=== PATIENT | male | born 1965 | race African-American/Black ===

== ENCOUNTER 2023-12-05 10:44 | Emergency (ER) | payer OTHER ==
[2023-12-05] MEDS ORDERED: Morphine 2 MG/ML VIAL ONE (11:22)
[2023-12-05] MEDS ORDERED: Morphine 4 MG/ML VIAL ONE (11:22)
[2023-12-05 12:26] LABS: #Eosinphils 0.1 thou/uL (0.0-0.7); #Monocytes 0.6 thou/uL (0.11-0.59); #Neutrophils 5.2 thou/uL (1.40-6.50); %Basophils 0.3 % (0.0-1.0); %Eosinophils 0.8 % (0.0-10.0); %Lymphocytes 9.7 % (21.0-51.0); %Monocytes 9.7 % (0.0-10.0); %Neutrophils 79.2 % (42.0-75.0); Hematocrit 33.9 % (42.0-52.0); Hemoglobin 11.2 g/dL (14.0-18.0); Mean Corpuscular Hemoglobin 28.1 pg (27.0-31.0); Mean Corpuscular Volume 85.2 fl (78.0-98.0); Mean Platelet Volume 13.6 fL (7.4-10.4); Platelet Count 147 10x3/uL (130-400); RBC Distribution Width 13.6 % (11.5-14.5); Red Blood Cell (RBC) Count 3.98 mill/uL (4.70-6.10); White Blood Cell (WBC) Count 6.5 10x3/uL (4.8-10.8)
[2023-12-05 12:45] LABS: ALT (SGPT) 7 U/L (8-55); AST (SGOT) 15 U/L (5-34); Albumin 4.1 g/dL (3.5-5.0); Alkaline Phosphatase 73 U/L (40-110); Anion Gap 14 mmol/L (10-20); BUN (Urea Nitrogen) 12 mg/dL (8.4-25.7); Bilirubin, Total 1.4 mg/dL (0.2-1.2); Calc. Creatinine Clearance 0 mL/min (70-130); Calcium 9.9 mg/dL (7.8-10.44); Carbon Dioxide 27 mmol/L (22-29); Chloride 103 mmol/L (98-107); Estimated GFR 100; Globulin 4.3 g/dL (2.4-3.5); Glucose 90 mg/dL (70-105); Protein, Total 8.4 g/dL (6.0-8.3); Sodium 140 mmol/L (136-145)
[2023-12-05 12:50] LABS: Troponin I 0.021 ng/mL (< 0.028)
== END 2023-12-05 13:20 | disposition home or self-care (01) ==
LOC: ERS 10:44
DX: R60.0 Localized edema (principal); E11.9 Type 2 diabetes mellitus without complications; E78.00 Pure hypercholesterolemia, unspecified
CPT/HCPCS: 36415; 71045; 80053; 83880; 84484; 85025; 93005; 96372; J2270; J2272

== ENCOUNTER 2024-09-22 21:17 | Observation (INO) | payer OTHER, SELFPAY ==
[2024-09-22 21:50] VITALS: BMI 27.5
[2024-09-22] MEDS ORDERED: Ondansetron ODT 4 MG TAB PO PRN (23:05)
[2024-09-23 00:06] LABS: Phosphorus 3.5 mg/dL (2.3-4.7)
[2024-09-23 04:59] LABS: Influenza A by NAA Not Detected (NotDetected); Influenza B by NAA Not Detected (NotDetected); SARS-CoV-2 NAA Rapid Test Not Detected (NotDetected)
[2024-09-23 06:09] LABS: #Basophils Less than 0.03 10x3/uL (0.0-0.2); %Basophils 0.4 % (0.0-1.0); %Eosinophils 1.7 % (0.0-10.0); %Lymphocytes 30.7 % (21.0-51.0); %Monocytes 12.1 % (0.0-10.0); %Neutrophils 54.7 % (42.0-75.0); Hematocrit 33.2 % (42.0-52.0); Hemoglobin 11.2 g/dL (14.0-18.0); Mean Corpuscular HGB CONC 33.7 g/dL (32.0-36.0); Platelet Count 80 10x3/uL (130-400); RBC Distribution Width 14.3 % (11.5-14.5)
[2024-09-23 06:13] LABS: INR-International Normal Ratio 1.2; PTT 31.3 sec (22.9-36.1); Prothrombin Time 14.8 sec (12.0-14.7)
[2024-09-23 06:17] LABS: ALT (SGPT) 6 U/L (8-55); AST (SGOT) 13 U/L (5-34); Albumin 3.8 g/dL (3.5-5.0); Alkaline Phosphatase 63 U/L (40-110); Anion Gap 12 mmol/L (10-20); BUN (Urea Nitrogen) 12 mg/dL (8.4-25.7); Bilirubin, Total 1.1 mg/dL (0.2-1.2); Calc. Creatinine Clearance 112 mL/min (70-130); Calcium 9.2 mg/dL (7.8-10.44); Carbon Dioxide 28 mmol/L (22-29); Chloride 108 mmol/L (98-107); Estimated GFR 96; Globulin 3.2 g/dL (2.4-3.5); Glucose 83 mg/dL (70-105); Potassium 3.7 mmol/L (3.5-5.1); Sodium 144 mmol/L (136-145)
[2024-09-23] MEDS: Pantoprazole DR 40 MG TAB PO SCH (08:37)
[2024-09-23] MEDS: metFORMIN 500 MG TAB PO SCH (08:38)
[2024-09-23] MEDS: Lactated Ringer's 1,000 ML IV SCH (09:27)
[2024-09-23 09:45] VITALS: BMI 27.5
[2024-09-23 09:56] LABS: Band 1 % (5-11); Burr Cells SLIGHT = 2-5 cells HPF (0-1); Eosinophils 2 % (0-10); Lymphocytes 33 % (21-51); Monocytes 5 % (0-10); Neutrophil 58 % (42-75); Platelet Adequacy Comment Platelets Decreased; Schistocytes SLIGHT = 2-5 cells HPF (0-1)
[2024-09-23] MEDS ORDERED: Regadenoson 0.4 MG/5 ML SYRINGE ONE (13:16)
[2024-09-23] MEDS: Acetaminophen 325 MG TAB PO PRN (16:32)
[2024-09-24 11:29] VITALS: TEMP 98.3
[2024-09-24 11:46] VITALS: BP 147/68
== END 2024-09-24 15:29 | disposition home or self-care (01) ==
LOC: 2SE 21:17
PROVIDERS: ADMIT Family Medicine; ATTEND Family Medicine
DX: M94.0 Chondrocostal junction syndrome [Tietze] (principal); M19.012 Primary osteoarthritis, left shoulder; M19.011 Primary osteoarthritis, right shoulder; I10 Essential (primary) hypertension; E11.40 Type 2 diabetes mellitus with diabetic neuropathy, unspecified; E80.6 Other disorders of bilirubin metabolism; E78.2 Mixed hyperlipidemia; D64.9 Anemia, unspecified; D72.819 Decreased white blood cell count, unspecified; D69.6 Thrombocytopenia, unspecified; G47.00 Insomnia, unspecified; K21.9 Gastro-esophageal reflux disease without esophagitis; R80.9 Proteinuria, unspecified; R63.4 Abnormal weight loss; Z79.84 Long term (current) use of oral hypoglycemic drugs; Z79.899 Other long term (current) drug therapy
CPT/HCPCS: 36415; 78452; 80053; 83735; 84100; 84443; 85007; 85025; 85027; 85610; 85730; 93017; A9502; G0378; J2785; J7120